=== PATIENT | female | born 1985 | race Caucasian/White ===

== ENCOUNTER 2017-08-02 18:23 | Emergency (ER) | payer OTHER ==
[~2017-08-02] VITALS: Ht 162.6 cm; Wt 59.0 kg
[2017-08-02 18:46] VITALS: BP 122/74
[2017-08-02] MEDS ORDERED: TDAP [DIPH/PERTUSSIS/TET] 0.5 ML VIAL IM ONE ×2 (19:04→19:30)
== END 2017-08-02 19:10 | disposition home or self-care (01) ==
LOC: ER 18:26
DX: S61.231A Puncture wound without foreign body of left index finger without damage to nail, initial encounter (principal); W46.0XXA Contact with hypodermic needle, initial encounter; Y93.89 Activity, other specified; Y92.89 Other specified places as the place of occurrence of the external cause; Y99.0 Civilian activity done for income or pay
CPT/HCPCS: 36415; 86706; 86803; 90471; 90715; 99284; A4606; Z7610

== ENCOUNTER → 2017-10-31 | Emergency (ER) | payer OTHER | END | disposition left against medical advice (07) | LOC: ER 08:52 | DX: Z53.21 Procedure and treatment not carried out due to patient leaving prior to being seen by health care provider (principal) | CPT/HCPCS: A4606; Z7610 ==

== ENCOUNTER 2018-05-15 15:34 | Emergency (ER) | payer SELFPAY ==
[~2018-05-15] VITALS: Ht 167.6 cm; Wt 61.2 kg
[2018-05-15 15:41] VITALS: BP 121/64
== END 2018-05-15 16:07 | disposition home or self-care (01) ==
LOC: ER 15:36
DX: Z77.21 Contact with and (suspected) exposure to potentially hazardous body fluids (principal); Z60.2 Problems related to living alone
CPT/HCPCS: 99281; A4606; Z7502